=== PATIENT | male | born 1960 | race Caucasian/White ===

== ENCOUNTER → 2020-01-14 08:50 | Outpatient (CLI) | payer OTHER, SELFPAY ==
[2020-01-15 09:29] LABS: COVID19 Sendout Not Detected (Not Detect)
== END ==
PROVIDERS: Family Provider Family Medicine; PCP Family Medicine; Visit Provider Physician Assistant
DX: Z03.818 Encounter for observation for suspected exposure to other biological agents ruled out (principal)
CPT/HCPCS: 87635

== ENCOUNTER → 2020-02-11 14:20 | Outpatient (CLI) | payer OTHER, SELFPAY ==
--- NOTE | 2020-02-11 15:19 | DIET.PN ---
Nutrition Initial Assessment:? ASSESS:???Mr. Laird is a 59 yom referred for pre-diabetes. He reports long standing history (25yrs) of hypoglycemia managed by small, frequent meals. He claims he eats the same thing just about every day other than dinner. He does not exercise but is very active at work. ? LABS: Per pt report:? A1c: 6.4 ? MEDS:?? n/a ? DIET: Per 24-hour recall:? B: cup warm milk, special k w/ milk Sn: crackers, cookies, wheat thins L: ww deli sandwich, applesauce Sn: crackers, cookies, wheat thins D: pro, veg, starch Sn: ice cream, small cup m&m?s ? Weight: 125lb Ht:? 66in BMI: 20.17 ? Exercise:? work NUTRITION DX 1. Altered Nutrition related labs related to impaired glucose metabolism, lack of previous exposure to accurate nutrition information as evidenced by pt report, dx of pre-diabetes, previous diet high in refined carbohydrates, lack of physical activity.? INTERVENTION(s): 1. Discussed pathophysiology of diabetes/hyperglycemia and impact of nutrition/diet on blood sugar control.? 2. Discussed the effect of carbohydrates/protein/fat on blood sugar control.? Stressed importance of consistent carbohydrate intake at each meal and provided instructions for recommended servings/portions of carbohydrates/protein per meal. Provided pt with educational material. 3. Reviewed carbohydrate counting and measuring carbohydrate content via serving sizes and reading nutrition labels.? Provided handouts.?? 4. Discussed the difference between simple versus complex carbohydrates and the effect of fiber on blood sugar control.? Discussed various methods to increase fiber content in diet. 5. Stressed importance of meal timing and not going >4-5 hours between meals. Encouraged adding protein to snacks to support glucose control and prevent hunger. Discussed various snack options. 6. Discussed importance of food preparation to encourage healthy eating, portion control, and prevent hunger/over snacking. MONITOR/EVALUATE: Anticipate excellent compliance.? Pt will call to schedule follow up following new labs.
== END ==
PROVIDERS: Family Provider Family Medicine; PCP Family Medicine; Referring Provider Student in an Organized Health Care Education/Training Program; Visit Provider Student in an Organized Health Care Education/Training Program
DX: R73.03 Prediabetes (principal); E16.2 Hypoglycemia, unspecified; Z71.3 Dietary counseling and surveillance
CPT/HCPCS: 97802

== ENCOUNTER → 2020-08-07 15:23 | Outpatient (CLI) | payer OTHER, SELFPAY ==
[2020-08-07] MEDS: COVID-19 VACC #1, MRNA(MOD) 100 MCG/0.5 ML VIAL IM (15:39)
== END ==
PROVIDERS: PCP Family Medicine; Visit Provider Internal Medicine
DX: Z23 Encounter for immunization (principal)
CPT/HCPCS: 0011A; 91301

== ENCOUNTER → 2020-09-04 15:03 | Outpatient (CLI) | payer OTHER, SELFPAY ==
[2020-09-04] MEDS: COVID-19 VACC #2, MRNA(MOD) 100 MCG/0.5 ML VIAL IM (15:23)
== END ==
PROVIDERS: PCP Family Medicine; Visit Provider Internal Medicine
DX: Z23 Encounter for immunization (principal)
CPT/HCPCS: 0012A; 91301

== ENCOUNTER → 2021-09-20 07:06 | Outpatient (CLI) | payer OTHER, SELFPAY ==
[2021-09-20 08:41] LABS: Add Manual Diff / Slide Review NO; Basophils Absolute Auto 100 /uL (0-100); Basophils Percent Auto 0.6 % (0-2); Eosinophils Absolute Auto 300 /uL (0-450); Eosinophils Percent Auto 3.1 % (2-4); Hematocrit 42.4 % (41-53); Hemoglobin 14.1 g/dL (13.5-17.5); Lymphocytes Absolute Auto 2200 /uL (1100-4500); Mean Corpuscular HGB Conc 33.2 % (30-36); Mean Corpuscular Hemoglobin 27.6 PG (26-34); Mean Corpuscular Volume 83.3 fL (80-100); Monocytes Absolute Auto 700 /uL (0-900); Monocytes Percent Auto 8.2 % (3-14); Neutrophils Absolute Auto 5200 /uL (1500-7000); Neutrophils Percent Auto 62.1 % (50-75); Platelet Count 363 X10^3/uL (150-400); Red Blood Cell Count 5.09 X10^6/uL (4.5-5.9); Red Cell Distribution Width 13.9 % (11.6-14.8); White Blood Cell Count 8.4 X10^3/uL (4.5-11.0)
[2021-09-20 08:55] LABS: Alanine Aminotransferase 23 IU/L (<50); Albumin 4.3 g/dL (3.5-5.0); Albumin Globulin Ratio 1.5 (1.0-2.8); Alkaline Phosphatase 71 U/L (38-126); Aspartate Aminotransferase 30 IU/L (17-59); BUN Creatinine Ratio 17.5 (6-22); Bilirubin Total 0.3 mg/dL (0.2-1.3); Blood Urea Nitrogen 14 mg/dL (9-20); Calcium 9.1 mg/dL (8.4-10.2); Carbon Dioxide 30 mmol/L (22-32); Chloride 103 mmol/L (98-107); Cholesterol 184 mg/dL (140-199); Estimated Glomerular Filt Rate > 60 mL/min (>60); Globulin 2.9 g/dL (1.7-4.1); Glucose 117 mg/dL (80-110); HDL Cholesterol 42 mg/dL (40-60); HEMOLYSIS < 15 (0-50); LDL Cholesterol Calculated 127 mg/dL (<100); Potassium 4.6 mmol/L (3.4-5.1); Sodium 139 mmol/L (137-145); Total Protein 7.2 g/dL (6.3-8.2); Triglycerides 73 mg/dL (35-150)
[2021-09-20 09:23] LABS: Prostate Specific Antigen Scrn 1.55 ng/mL (0.1-4.0)
[2021-09-20 09:24] LABS: TSH w/ Reflex to FT4 1.86 uIU/mL (0.47-4.68)
[2021-09-20 16:51] LABS: Hep C Virus Ab w/Reflex Quant NEGATIVE s/c (NEGATIVE)
== END ==
PROVIDERS: PCP Family Medicine; Referring Provider Family Medicine; Visit Provider Family Medicine
DX: G89.29 Other chronic pain (principal); K58.9 Irritable bowel syndrome, unspecified; M54.50 Low back pain, unspecified; Z00.00 Encounter for general adult medical examination without abnormal findings; Z12.5 Encounter for screening for malignant neoplasm of prostate; J30.9 Allergic rhinitis, unspecified
CPT/HCPCS: 36415; 80053; 80061; 84443; 85025; 86803; G0103

== ENCOUNTER → 2021-10-04 09:53 | Outpatient (CLI) | payer OTHER, SELFPAY ==
--- NOTE | 2021-10-04 09:54 | DI.CT.S_ITS ---
PROCEDURE: CT CHEST WO CON INDICATIONS: Nicotine dependence, cigarettes, uncomplicated TECHNIQUE: Noncontrast 5 mm thick sections acquired from the pulmonary apices to the posterior costophrenic angles. 1 mm lung window, 5 mm thick coronal and sagittal and 7 mm axial MIP reformats were then acquired. For radiation dose reduction, the following was used: automated exposure control, adjustment of mA and/or kV according to patient size. COMPARISON: None. FINDINGS: Image quality: Excellent. Lungs and pleura: Severe centrilobular emphysema. There are 2 separate pulmonary nodules in the left upper lobe in close proximity to each other on image 124/3, measuring 5 mm and 4 mm respectively. There is a 3 mm nodule in the left upper lobe on image 155/3. There is a 3 mm pleural based nodule in the left lower lobe on image 175/3. There is a 2 mm pulmonary nodule in the subpleural right lower lobe on image 212/3. There is a 2 mm right upper lobe pulmonary nodule image 105/3. No acute air space opacities. No pleural effusions or pneumothorax. Central and peripheral airways are patent and normal in caliber. Mediastinum: Heart size is normal. No pericardial effusion. No mediastinal adenopathy by size criteria. Thoracic aorta and central pulmonary arteries are normal in size. Esophagus is normal in caliber. No hiatal hernia. Bones and chest wall: No suspicious bony lesions. No vertebral body compression fractures. No axillary or supraclavicular adenopathy by size criteria. Thyroid gland is unremarkable as visualized . Abdomen: Visualized upper abdominal solid organs and bowel loops appear normal in the absence of contrast. IMPRESSION: 1. Severe centrilobular emphysema. 2. There are multiple pulmonary nodules, the largest of which measures 5 mm. In this particular case, would recommend follow-up CT in 6 months. IM basing this recommendation based on recommendations utilized in initial lung screen CT evaluations. Dictated by: Florencio Suárez M.D. on 10/04/2021 at 18:01 Approved by: Florencio Suárez M.D. on 10/04/2021 at 18:06
== END ==
PROVIDERS: PCP Family Medicine; Referring Provider Family Medicine; Visit Provider Family Medicine
DX: J43.2 Centrilobular emphysema (principal); R91.8 Other nonspecific abnormal finding of lung field; F17.210 Nicotine dependence, cigarettes, uncomplicated
CPT/HCPCS: 71250

== ENCOUNTER 2022-06-24 18:04 | Emergency (ER) | payer OTHER, SELFPAY ==
[2022-06-24 18:15] VITALS: BP 120/79; PULSE 89; RESP 18; TEMP 36.6; O2SAT 98; BMI 20.1
--- NOTE | 2022-06-24 18:21 | ED_ITS ---
HPI - Abdominal Pain General Chief Complaint: Abdominal Pain Stated Complaint: ABD pain Time Seen by Provider: 06/24/22 18:10 Source: patient Mode of arrival: Ambulatory History of Present Illness HPI narrative: 62-year-old male smoker without any chronic medical history presents with a chief complaint of gradually worsening abdominal pain over the course of the day. He states he went to bed in his normal state of health and over the day he is had increasing pain that is largely in his right lower quadrant. It is worse when he moves and improves with rest. He is nauseated but denies any vomiting. He has a poor appetite. He last ate at about 4:00 p.m.. He denies any dysuria, frequency or urgency. He denies any change in bowel habits such as constipation or diarrhea. He is otherwise well and denies dizziness or lightheadedness. He has no chest pain or shortness of breath. Related Data Home Medications Medication Instructions Recorded Confirmed ascorbate calcium (vitamin C) 500 500 mg PO DAILY 05/20/20 10/26/21 mg tablet multivitamin 1 tab PO DAILY 05/20/20 10/26/21 omeprazole 20 mg capsule,delayed 20 mg PO DAILY 05/20/20 06/24/22 release Previous Rx's Medication Instructions Recorded hyoscyamine sulfate 0.125 mg 0.25 mg PO QID PRN dyspepsia #90 08/12/21 disintegrating tablet tabs azelastine 137 mcg (0.1 %) nasal 1 spray intranasal DAILY #30 mL 09/09/21 spray aerosol chlordiazepoxide-clidinium 5 1 cap PO QAC PRN abdominal pain 09/09/21 mg-2.5 mg capsule #30 caps albuterol sulfate 90 mcg/actuation 2 puff inhalation QID PRN 10/26/21 aerosol inhaler shortness of breath or wheezing #8.5 grams Allergies Allergy/AdvReac Type Severity Reaction Status Date / Time erythromycin base AdvReac Intermediate STOMACH Verified 06/24/22 18:19 [From ERYTHROCIN] CRAMPS Review of Systems Review of Systems Narrative: GENERAL: Denies chills, fatigue, malaise, fever, sweats. HEENT: Denies sinus pain, ear pain, sore throat, difficulty swallowing, dizziness. RESPIRATORY: Denies dyspnea, cough, wheezing, hemoptysis, sputum. CARDIOVASCULAR: Denies chest pain, palpitations, orthopnea, edema, GASTROINTESTINAL: See HPI : Denies dysuria, frequency, incontinence, hematuria, urinary retention. MUSCULOSKELETAL: denies weakness, joint pain, or bony pain SKIN: Denies rash, skin lesions, or other NEUROLOGIC: Denies weakness, headache, numbness, change in speech, confusion, seizures, incoordination. PSYCHIATRIC: No concerning psychosocial issues. 12 point review of systems is negative except for those stated above Patient History Medical History Allergic rhinitis Chicken pox (~1967) Chronic back pain (~1991) Emphysema lung Headache (~1975) Hemorrhoid (~1989) Hemorrhoid prolapse IBS (irritable bowel syndrome) (~2015) Pulmonary nodules Surgical History Anesthesia History of colonoscopy Family History Father Diabetes mellitus Cancer Mother Cancer Mental health problem Sister Stroke Mental health problem Sister Mental health problem Social History marital status: household members: spouse occupational status: employed Smoking Status: Current every day smoker alcohol intake: never substance use type: does not use Smoking Status: Current every day smoker tobacco type: cigarettes alcohol intake frequency: other Substance Use Type: does not use Exam Narrative Exam Narrative: GENERAL: [62] year old patient appears stated age. Well-developed patient, in mild distress. HEAD: Atraumatic. Normocephalic. EYES: Pupils equal round and reactive. Extraocular motions intact. No scleral icterus. No injection or drainage. ENT: Nose without bleeding, purulent drainage. Throat without erythema, tonsillar hypertrophy or exudate. Airway patent. NECK: Trachea midline. Non tender CARDIOVASCULAR: Regular rate and rhythm without murmurs, gallops, or rubs. RESPIRATORY: Clear to auscultation. Breath sounds equal bilaterally. No wheezes, rales, or rhonchi. GASTROINTESTINAL: Abdomen soft, tender in the right lower quadrant with local ized guarding, nondistended. No heel tap or obturator EXTREMITIES: No edema or joint tenderness. BACK: Nontender without deformity or crepitance. No flank tenderness. NEURO: AOx3. SKIN: No rash or erythema of visible areas Initial Vital Signs Initial Vital Signs: Vital Signs Temperature 98 F 06/24/22 18:15 Pulse Rate 89 06/24/22 18:15 Respiratory Rate 18 06/24/22 18:15 Blood Pressure 120/79 06/24/22 18:15 Pulse Oximetry 98 06/24/22 18:15 Oxygen Delivery Method Room Air 06/24/22 18:15 Course Orders Ordered: ED Orders 06/24/22 18:26 Complete Blood Count AUTO DIFF Stat Comprehensive Metabolic Panel Stat Lipase Stat 06/24/22 18:55 Urine Microscopic Stat 06/24/22 20:16 CT abdomen pelvis w con Stat 06/24/22 20:28 EKG-12 Lead Stat 06/24/22 21:37 COVID19 -Nasal RAPID Stat Discontinued Medications Sodium Chloride (Normal Saline 0.9%) 1,000 mls @ 1,000 mls/hr IV BOLUS ONE Stop: 06/24/22 21:16 Last Infusion: 06/24/22 21:42 Dose: 0 mls/hr Documented By: Admin: 06/24/22 20:44 Dose: 1,000 mls/hr Documented By: ABUNDIO Piperacillin Sod/Tazobactam (Sod 4.5 gm/ Sodium Chloride) 100 mls @ 200 mls/hr IV NOW ONE Stop: 06/24/22 21:25 Last Infusion: 06/24/22 22:18 Dose: 0 mls/hr Documented By: Admin: 06/24/22 21:46 Dose: 200 mls/hr Documented By: ABUNDIO Vital Signs Vital signs: Vital Signs - 8 hr 06/24/22 18:15 Temperature 98 F Pulse Rate 89 Respiratory Rate 18 Blood Pressure 120/79 Pulse Oximetry 98 Oxygen Delivery Method Room Air MDM - Abdominal Pain Lab Data 06/24/22 18:26 06/24/22 18:26 Labs: Lab Results 06/24/22 06/24/22 06/24/22 Range/Units 18:26 18:26 21:37 WBC 18.5 H (4.5-11.0) X10^3/uL RBC 5.26 (4.5-5.9) X10^6/uL Hgb 14.5 (13.5-17.5) g/dL Hct 43.4 (41-53) % MCV 82.6 (80-100) fL MCH 27.6 (26-34) PG MCHC 33.4 (30-36) % RDW 13.8 (11.6-14.8) % Plt Count 339 (150-400) X10^3/uL Neut % (Auto) Not Reportable Lymph % (Auto) Not Reportable Daniels % (Auto) Not Reportable Eos % (Auto) Not Reportable Baso % (Auto) Not Reportable Lymph # (Auto) Not Reportable Daniels # (Auto) Not Reportable Baso # (Auto) Not Reportable Total Counted 100 Seg Neutrophils % 83.0 H (38-70) % Band Neutrophils % 3.0 (3-7) % Lymphocytes % (Manual) 7.0 L (25-45) % Monocytes % (Manual) 6.0 (2-11) % Eosinophils % (Manual) 1.0 L (2-4) % Neutrophils # (Manual) 37666 H (2458-0503) /uL RBC Morphology Normal morphology Sodium 138 (137-145) mmol/L Potassium 3.7 (3.4-5.1) mmol/L Chloride 102 (98-107) mmol/L Carbon Dioxide 28 (22-32) mmol/L BUN 14 (9-20) mg/dL Creatinine 0.66 (0.66-1.25) mg/dL Estimated GFR > 60 (>60) mL/min BUN/Creatinine Ratio 21.2 (6-22) Glucose 156 H (80-110) mg/dL Calcium 9.3 (8.4-10.2) mg/dL Total Bilirubin 0.6 (0.2-1.3) mg/dL AST 27 (17-59) IU/L ALT 25 (<50) IU/L Alkaline Phosphatase 74 (38-126) U/L Total Protein 7.8 (6.3-8.2) g/dL Albumin 4.6 (3.5-5.0) g/dL Globulin 3.2 (1.7-4.1) g/dL Albumin/Globulin Ratio 1.4 (1.0-2.8) Lipase 76 (23-300) U/L SARS-CoV-2 (PCR) Negative (Negative) Point of care testing: Urine Dip Bedside Urine Glucose 250 mg/dl Bedside Urine Bilirubin - Negative Bedside Urine Ketone +/- 5 Urine Specific [place] 1.015 Bedside Urine Occult Blood - Negative Bedside Urine pH 6.0 Bedside Urine Protein - Negative Bedside Urine Urobilinogen - Negative Bedside Urine Nitrite - Negative Bedside Urine Leukocytes - Negative Esterase Imaging Data CT scan - abdomen/pelvis: Radiologist's Impression: [address] [address] [address] Scan Report Signed Patient: Denzel Laird MR#: [id number] : 1960 Acct:[id number] Age/Sex: 62 / M Date of Service: 06/24/22 Loc: ED Accession Number: [id number] ?? Procedure: CT abdomen pelvis w con Ordering Provider: Lalito Melendez D.O. PROCEDURE:? CT ABDOMEN PELVIS W CON ? INDICATIONS:? abd pain ? TECHNIQUE:? After the administration of IV contrast, axial sections were acquired from the lung bases to the pubic symphysis.? Coronal and sagittal reformats were performed.? For radiation dose reduction, the following was used:? automated exposure control, adjustment of mA and/or kV according to patient size. ? COMPARISON:? None. ? FINDINGS:? Image quality:? Excellent.? ? Lung bases:? There is scarring in the lung bases.? Moderate to severe centrilobular emphysematous changes are also noted.? ? Heart:? Heart is normal in size. ? ? ABDOMEN: Liver:? No mass lesion. Gallbladder:? Within normal limits without calcified gallstones.? ? Biliary ducts:? No biliary ductal dilatation.? ? Pancreas:? Unremarkable.? ? Spleen:? Normal in size.? ? Adrenal Glands:? No adrenal nodules.? ? Kidneys and Ureters:? No hydronephrosis.? ? ? Bowel and peritoneum:? Stomach, small bowel loops, and colon are normal in caliber and wall thickness.? There is abnormal distention of the appendix measuring up to 1.2 cm in diameter with wall thickening and enhancement as well as periappendiceal fat stranding and fluid.? There is an indistinct region at the tip of the appendix suspicious for perforation.? No appendicoliths.? There is a small amount of free fluid in the adjacent right paracolic gutter.? No loculated abscess or free air. ? Ventral Wall: ? No hernia.? Abdominal Nodes:? No retroperitoneal or mesenteric adenopathy by size criteria.? Vessels:? Aorta and inferior vena cava are normal in size.? ? PELVIS: Pelvic Organs:? Unremarkable.? ? Bladder:? Unremarkable.? ? Pelvic Nodes: No enlarged lymph nodes.? Miscellaneous: No inguinal hernias are seen. ? ? ? Bones:? Visualized osseous structures demonstrate no suspicious focal lesions. ? IMPRESSION:? ? 1. Acute appendicitis with suspected perforation at the appendiceal tip.? Small amount of adjacent free fluid demonstrated in the right paracolic gutter without free air or abscess collection. ? Findings discussed with Dr. Melendez on 06/24/2022 at 9:24 p.m..? ? ? Dictated by: Augustin Subramanian M.D. on 06/24/2022 at 21:23 ? ? Approved by: Augustin Subramanian M.D. on 06/24/2022 at 21:28 ? MDM Narrative Medical decision making narrative: CC: 62-year-old male smoker with right lower quadrant pain Complicating co-morbidities: Age, smoker Data collected from: Patient Medical records reviewed: Prior notes reviewed in our EMR Differential considered, but not limited to: Appendicitis, bowel obstruction versus other Exam documented above, pertinent findings include: Right lower quadrant tenderness with localized peritonitis, voluntary guarding, no rebound Lab Test results independently reviewed as above. Pertinent findings: Leukocytosis with relative left shift Independently reviewed EKG as above Imaging studies independently reviewed: CT with appendicitis and free fluid, suggestion of possible perforation of appendiceal tip, no abscess Consultations: Discussed with radiology, Dr. Rossi ([facility] happy to accept Treatments: saline, Zosyn Discussion: 62-year-old male with history and physical exam rather classic and convincing for appendicitis. No signs of sepsis, imaging confirms appendicitis with probable small contained per. Patient requires hospitalization for surgical intervention, we are unable to keep patient here at this time due to unscheduled OR shut down Critical Care Time Critical Care Time Critical Care Time: Yes Total Critical Care Time: 30 Attestation: The high probability of a clinically significant, sudden or life threatening deterioration of the [GI] system(s) required my full and direct attention, intervention and personal management. The aggregate critical care time was [30] minutes. This time is in addition to time spent performing reported procedures b ut includes the following: [x] Data Review and interpretation [x] Patient assessment and monitoring of vital signs [x] Documentation [x] Medication orders and management Discharge Plan Departure Patient Disposition: [facility] Clinical Impression: Acute appendicitis with localized peritonitis Prescriptions: No Action hyoscyamine sulfate 0.125 mg tablet,disintegrating 0.25 mg PO QID PRN (Reason: dyspepsia) Qty: 90 3RF azelastine 137 mcg (0.1 %) aerosol,spray 1 spray intranasal DAILY Qty: 30 4RF Rx Instructions: administer into each nostril chlordiazepoxide-clidinium 5-2.5 mg capsule 1 cap PO QAC PRN (Reason: abdominal pain) Qty: 30 0RF albuterol sulfate 90 mcg/actuation HFA aerosol inhaler 2 puff inhalation QID PRN (Reason: shortness of breath or wheezing) Qty: 8.5 2RF multivitamin Tablet 1 tab PO DAILY ascorbate calcium (vitamin C) 500 mg tablet 500 mg PO DAILY omeprazole 20 mg capsule,delayed release(DR/EC) 20 mg PO DAILY Referrals: Gavin Elmore MD [Primary Care Provider] -
[2022-06-24 18:36] LABS: Hematocrit 43.4 % (41-53); Hemoglobin 14.5 g/dL (13.5-17.5); Mean Corpuscular HGB Conc 33.4 % (30-36); Mean Corpuscular Hemoglobin 27.6 PG (26-34); Mean Corpuscular Volume 82.6 fL (80-100); Platelet Count 339 X10^3/uL (150-400); Red Blood Cell Count 5.26 X10^6/uL (4.5-5.9); Red Cell Distribution Width 13.8 % (11.6-14.8); White Blood Cell Count 18.5 X10^3/uL (4.5-11.0)
[2022-06-24 18:41] LABS: Add Manual Diff / Slide Review YES
[2022-06-24 18:51] LABS: Alanine Aminotransferase 25 IU/L (<50); Albumin 4.6 g/dL (3.5-5.0); Albumin Globulin Ratio 1.4 (1.0-2.8); Alkaline Phosphatase 74 U/L (38-126); Aspartate Aminotransferase 27 IU/L (17-59); BUN Creatinine Ratio 21.2 (6-22); Bilirubin Total 0.6 mg/dL (0.2-1.3); Blood Urea Nitrogen 14 mg/dL (9-20); Calcium 9.3 mg/dL (8.4-10.2); Carbon Dioxide 28 mmol/L (22-32); Chloride 102 mmol/L (98-107); Estimated Glomerular Filt Rate > 60 mL/min (>60); Globulin 3.2 g/dL (1.7-4.1); Glucose 156 mg/dL (80-110); HEMOLYSIS < 15 (0-50); Lipase 76 U/L (23-300); Potassium 3.7 mmol/L (3.4-5.1); Sodium 138 mmol/L (137-145); Total Protein 7.8 g/dL (6.3-8.2)
[2022-06-24 19:25] LABS: Neutrophils Absolute Manual 15910 /uL (3000-5900); RBC Morphology Normal Morphology; Total Cells Counted 100
--- NOTE | 2022-06-24 20:16 | DI.CT.S_ITS ---
PROCEDURE: CT ABDOMEN PELVIS W CON INDICATIONS: abd pain TECHNIQUE: After the administration of IV contrast, axial sections were acquired from the lung bases to the pubic symphysis. Coronal and sagittal reformats were performed. For radiation dose reduction, the following was used: automated exposure control, adjustment of mA and/or kV according to patient size. COMPARISON: None. FINDINGS: Image quality: Excellent. Lung bases: There is scarring in the lung bases. Moderate to severe centrilobular emphysematous changes are also noted. Heart: Heart is normal in size. ABDOMEN: Liver: No mass lesion. Gallbladder: Within normal limits without calcified gallstones. Biliary ducts: No biliary ductal dilatation. Pancreas: Unremarkable. Spleen: Normal in size. Adrenal Glands: No adrenal nodules. Kidneys and Ureters: No hydronephrosis. Bowel and peritoneum: Stomach, small bowel loops, and colon are normal in caliber and wall thickness. There is abnormal distention of the appendix measuring up to 1.2 cm in diameter with wall thickening and enhancement as well as periappendiceal fat stranding and fluid. There is an indistinct region at the tip of the appendix suspicious for perforation. No appendicoliths. There is a small amount of free fluid in the adjacent right paracolic gutter. No loculated abscess or free air. Ventral Wall: No hernia. Abdominal Nodes: No retroperitoneal or mesenteric adenopathy by size criteria. Vessels: Aorta and inferior vena cava are normal in size. PELVIS: Pelvic Organs: Unremarkable. Bladder: Unremarkable. Pelvic Nodes: No enlarged lymph nodes. Miscellaneous: No inguinal hernias are seen. Bones: Visualized osseous structures demonstrate no suspicious focal lesions. IMPRESSION: 1. Acute appendicitis with suspected perforation at the appendiceal tip. Small amount of adjacent free fluid demonstrated in the right paracolic gutter without free air or abscess collection. Findings discussed with Dr. Melendez on 06/24/2022 at 9:24 p.m.. Dictated by: Augustin Subramanian M.D. on 06/24/2022 at 21:23 Approved by: Augustin Subramanian M.D. on 06/24/2022 at 21:28
[2022-06-24] MEDS: SODIUM CHLORIDE 0.9% 1,000 ML 1000 ML IV (20:44)
[2022-06-24] MEDS: PIPERACILLIN/TAZO 4.5 GM in SODIUM CHLORIDE 0.9% 100 ML IV (21:46)
[2022-06-24 22:00] LABS: COVID19 -Nasal RAPID Negative (Negative)
[2022-06-25 03:58] VITALS: BP 105/64; PULSE 76; RESP 14; TEMP 37.1; O2SAT 97
== END 2022-06-25 04:00 | disposition short-term general hospital (02) ==
PROVIDERS: Emergency Provider Emergency Medicine; PCP Family Medicine
DX: K35.30 Acute appendicitis with localized peritonitis, without perforation or gangrene (principal); Z20.822 Contact with and (suspected) exposure to COVID-19
CPT/HCPCS: 36415; 74177; 80053; 81003; 83690; 85007; 85025; 87635; 93005; 93010; 96361; 96365; 99284; C9803; J2543; Q9967

== ENCOUNTER → 2022-10-28 07:05 | Outpatient (CLI) | payer OTHER, SELFPAY ==
[2022-10-28 08:11] LABS: Add Manual Diff / Slide Review NO; Basophils Absolute Auto 100 /uL (0-100); Basophils Percent Auto 1.3 % (0-2); Eosinophils Absolute Auto 300 /uL (0-450); Eosinophils Percent Auto 4.2 % (2-4); Hematocrit 42.9 % (41-53); Hemoglobin 14.5 g/dL (13.5-17.5); Lymphocytes Absolute Auto 2100 /uL (1100-4500); Lymphocytes Percent Auto 26.9 % (25-40); Mean Corpuscular HGB Conc 33.9 % (30-36); Mean Corpuscular Hemoglobin 28.2 PG (26-34); Monocytes Absolute Auto 700 /uL (0-900); Monocytes Percent Auto 8.3 % (3-14); Neutrophils Absolute Auto 4700 /uL (1500-7000); Neutrophils Percent Auto 59.3 % (50-75); Platelet Count 336 X10^3/uL (150-400); Red Blood Cell Count 5.16 X10^6/uL (4.5-5.9); Red Cell Distribution Width 13.6 % (11.6-14.8); White Blood Cell Count 7.9 X10^3/uL (4.5-11.0)
[2022-10-28 08:33] LABS: Alanine Aminotransferase 23 IU/L (<50); Albumin 4.2 g/dL (3.5-5.0); Albumin Globulin Ratio 1.4 (1.0-2.8); Alkaline Phosphatase 69 U/L (38-126); Aspartate Aminotransferase 27 IU/L (17-59); BUN Creatinine Ratio 21.5 (6-22); Bilirubin Total 0.5 mg/dL (0.2-1.3); Blood Urea Nitrogen 17 mg/dL (9-20); Calcium 9.1 mg/dL (8.4-10.2); Carbon Dioxide 30 mmol/L (22-32); Chloride 102 mmol/L (98-107); Cholesterol 182 mg/dL (140-199); Estimated Glomerular Filt Rate > 60 mL/min (>60); Globulin 2.9 g/dL (1.7-4.1); Glucose 112 mg/dL (80-110); HDL Cholesterol 46 mg/dL (40-60); HEMOLYSIS < 15 (0-50); LDL Cholesterol Calculated 121 mg/dL (<100); Potassium 4.6 mmol/L (3.4-5.1); Sodium 137 mmol/L (137-145); Total Protein 7.1 g/dL (6.3-8.2); Triglycerides 74 mg/dL (35-150)
[2022-10-28 09:02] LABS: Prostate Specific Antigen Scrn 1.81 ng/mL (0.1-4.0)
[2022-10-28 09:14] LABS: TSH w/ Reflex to FT4 1.49 uIU/mL (0.47-4.68)
[2022-10-29 09:30] LABS: Labcorp Hemoglobin (Hb) A1c 6.1 % (4.8-5.6)
== END ==
PROVIDERS: PCP Family Medicine; Referring Provider Family Medicine; Visit Provider Family Medicine
DX: J43.9 Emphysema, unspecified (principal); R91.8 Other nonspecific abnormal finding of lung field; R73.9 Hyperglycemia, unspecified; E78.5 Hyperlipidemia, unspecified; Z00.00 Encounter for general adult medical examination without abnormal findings
CPT/HCPCS: 36415; 80053; 80061; 83036; 84443; 85025; G0103

== ENCOUNTER → 2022-11-01 07:35 | Outpatient (CLI) | payer OTHER, SELFPAY ==
--- NOTE | 2022-11-01 16:54 | DI.CT.S_ITS ---
PROCEDURE: CT CHEST WO CON INDICATIONS: pulmonary nodules TECHNIQUE: Noncontrast 2.0-2.5 mm thick sections acquired from the pulmonary apices to the posterior costophrenic angles. 7 mm thick axial MIP and 5 mm coronal and sagittal reformats were then acquired. A low radiation dose technique was utilized. COMPARISON: [facility], CT, CT CHEST WO CON, 10/04/2021, 10:21. FINDINGS: Image quality: Diagnostic, given the low radiation dose technique. Lungs and pleura: Redemonstration of severe upper lobe predominant centrilobular pulmonary emphysematous changes. 2 immediately adjacent pulmonary nodules noted in the left upper lobe (image 127/series 3) are not significantly changed. The measure approximately 5 mm and 6 mm in size, respectively. Stable 3 mm left upper lobe nodule seen on image 160/series 3. Stable 3 mm subpleural left lower lobe pulmonary nodule seen on image 201/series 3. Stable 2-3 mm subpleural nodule in the posterior right lower lobe (image 203/series 3). No new suspicious pulmonary nodules identified. No acute airspace opacities. No pneumothorax. No pleural effusion. No septal thickening or nodularity. Visualized airways appear patent. Mediastinum: Heart size is normal. No pericardial effusion. No mediastinal adenopathy by size criteria. Thoracic aorta and central pulmonary arteries are normal in size. Esophagus is normal in caliber. No hiatal hernia. Bones and chest wall: No suspicious bony lesions. No vertebral body compression fractures. No axillary or supraclavicular adenopathy by size criteria. Thyroid gland is unremarkable . Abdomen: Visualized upper abdomen solid organs and bowel loops appear normal in the absence of contrast. IMPRESSION: 1. CT chest without acute cardiopulmonary abnormalities. Redemonstration of severe upper lobe predominant centrilobular pulmonary emphysema. 2. Multiple stable bilateral pulmonary nodules measuring up to 6 mm in maximum dimension. No new suspicious pulmonary nodules identified. Recommend follow-up chest CT in 12 months to document continued stability. Fleischner Society criteria for SOLID lung nodule followup. Nodule size (mm)Low-risk patientHigh-risk patient<6 (single or multiple)No routine followup.Optional CT at 12 months. 6-8 (single or multiple)CT at 6-12 months, then optional CT at 18-24 mo.CT at 6-12 months, then CT at 18-24 months. >8 (single)CT at 3 months, PET-CT, or biopsy. Same as for low-risk pts. >8 (multiple)CT at 3-6 months, then optional CT at 18-24 mo.CT at 3-6 months, then CT at 18-24 months. Fleischner Society criteria for SUB-SOLID lung nodule followup. Solitary pure ground-glass nodules<6 mm (ground glass or part solid)No followup needed. 6 mm or larger (ground glass)CT at 6-12 months to confirm persistence, then CT every 2 years until 5 years.6 mm or larger (part solid)CT at 3-6 months to confirm persistence, then annual CT until 5 years if unchanged and solid component remains <6 mm. Multiple sub-solid nodules<6 mmCT at 3-6 months, then CT consider at 2 & 4 years for high risk patients. [address] at 3-6 months. Subsequent management based on most suspicious lesions. Recommendations do not apply to lung cancer screening, patients with immunosuppression, or patients with known primary cancer. Dictated by: Miguel Angel Ash M.D. on 11/02/2022 at 11:40 Approved by: Miguel Angel Ash M.D. on 11/02/2022 at 11:50
[2022-11-02 17:13] LABS: Fecal Immunochemical Test Negative (Negative)
== END ==
PROVIDERS: PCP Family Medicine; Referring Provider Family Medicine; Visit Provider Family Medicine
DX: R91.8 Other nonspecific abnormal finding of lung field (principal); J43.2 Centrilobular emphysema; Z12.11 Encounter for screening for malignant neoplasm of colon
CPT/HCPCS: 71250; 82274

== ENCOUNTER → 2024-04-29 07:07 | Outpatient (CLI) | payer BC, SELFPAY ==
[2024-04-29 08:06] LABS: Add Manual Diff / Slide Review NO; Basophils Absolute Auto 100 /uL (0-100); Basophils Percent Auto 0.8 % (0-2); Eosinophils Absolute Auto 400 /uL (0-450); Eosinophils Percent Auto 4.3 % (2-4); Hematocrit 43.6 % (41-53); Hemoglobin 14.5 g/dL (13.5-17.5); Lymphocytes Absolute Auto 2500 /uL (1100-4500); Lymphocytes Percent Auto 28.1 % (25-40); Mean Corpuscular HGB Conc 33.3 % (30-36); Mean Corpuscular Volume 84.1 fL (80-100); Monocytes Absolute Auto 800 /uL (0-900); Monocytes Percent Auto 8.8 % (3-14); Neutrophils Absolute Auto 5200 /uL (1500-7000); Platelet Count 364 X10^3/uL (150-400); Red Blood Cell Count 5.19 X10^6/uL (4.5-5.9); White Blood Cell Count 8.9 X10^3/uL (4.5-11.0)
[2024-04-29 08:11] LABS: Alanine Aminotransferase 24 IU/L (<50); Albumin 4.4 g/dL (3.5-5.0); Albumin Globulin Ratio 1.9 (1.0-2.8); Alkaline Phosphatase 66 U/L (38-126); Aspartate Aminotransferase 32 IU/L (17-59); BUN Creatinine Ratio 21.8 (6-22); Bilirubin Total 0.5 mg/dL (0.2-1.3); Blood Urea Nitrogen 17 mg/dL (9-20); Calcium 9.4 mg/dL (8.4-10.2); Carbon Dioxide 30 mmol/L (22-32); Chloride 106 mmol/L (98-107); Cholesterol 191 mg/dL (140-199); Estimated Glomerular Filt Rate > 60 mL/min (>60); Globulin 2.3 g/dL (1.7-4.1); Glucose 113 mg/dL (80-110); HDL Cholesterol 52 mg/dL (40-60); HEMOLYSIS < 15 (0-50); LDL Cholesterol Calculated 125 mg/dL (<100); Potassium 4.2 mmol/L (3.4-5.1); Sodium 138 mmol/L (137-145); Total Protein 6.7 g/dL (6.3-8.2); Triglycerides 72 mg/dL (35-150)
[2024-04-29 08:42] LABS: Prostate Specific Antigen Scrn 4.65 ng/mL (0.1-4.0)
== END ==
PROVIDERS: PCP Family Medicine; Referring Provider Family Medicine; Visit Provider Family Medicine
DX: Z12.5 Encounter for screening for malignant neoplasm of prostate (principal); Z00.00 Encounter for general adult medical examination without abnormal findings; J43.9 Emphysema, unspecified; R91.8 Other nonspecific abnormal finding of lung field; G89.29 Other chronic pain; M54.9 Dorsalgia, unspecified; R73.9 Hyperglycemia, unspecified; E78.2 Mixed hyperlipidemia
CPT/HCPCS: 36415; 80053; 80061; 83036; 85025; G0103

== ENCOUNTER → 2024-04-30 08:06 | Outpatient (CLI) | payer OTHER, SELFPAY ==
[2024-05-01 13:10] LABS: Fecal Immunochemical Test Negative (Negative)
== END ==
PROVIDERS: PCP Family Medicine; Referring Provider Family Medicine; Visit Provider Family Medicine
DX: Z12.11 Encounter for screening for malignant neoplasm of colon (principal)
CPT/HCPCS: 82274

== ENCOUNTER → 2024-05-06 09:45 | Outpatient (CLI) | payer OTHER, SELFPAY ==
--- NOTE | 2024-05-06 09:48 | DI.CT.S_ITS ---
PROCEDURE: CT LUNG LOW DOSE SCREENING INDICATIONS: current smoker TECHNIQUE: Noncontrast 2.0-2.5 mm thick sections acquired from the pulmonary apices to the posterior costophrenic angles. 7 mm thick axial MIP, and 5 mm coronal and sagittal reformats were then acquired. For radiation dose reduction, the following was used: automated exposure control, adjustment of mA and/or kV according to patient size. COMPARISON: None. FINDINGS: Image quality: Diagnostic. Lungs and Pleura: Occasional scattered micro nodules in the right upper lobe, the largest measuring 4 mm, 3/99. Clustered smooth solid nodules anterolateral left upper lobe measuring five and 6 mm, 3/146. Few smaller solid lingular nodules, 3/250 and 177. Occasional smaller nodules in the left lower lobe and a few Yenny fissural lymph nodes. Moderate to severe upper lobe predominant emphysematous change. Minor peripheral left mid and lower lung ground-glass opacity associated with destructive centrilobular emphysematous change. No dense consolidations or pleural effusions. No pleural calcification. No significant bronchiectasis or bronchial wall thickening. Lower Neck: No enlarged lymph nodes. Thyroid: Normal CT appearance. Axillae: No enlarged lymph nodes. Chest Wall: No suspicious chest wall mass. Bones: No suspicious bone lesions. Heart: Heart size is normal. No pericardial effusion. Thoracic Vessels: The aorta and pulmonary arteries demonstrate normal size. Mediastinum and Dolores: No enlarged lymph nodes. Esophagus: No wall thickening. No hiatal hernia. Upper Abdomen: Visualized upper abdomen solid organs and bowel loops appear normal. IMPRESSION: Several scattered smooth bilateral solid lung nodules, the largest measuring 6 mm. LUNG-RADS three; six-month follow-up low-dose chest CT recommended to reassess size. Clinically Significant Non-pulmonary Findings: Moderate to severe emphysema.. Dictated by: Abbi Pineda M.D. on 05/06/2024 at 16:03 Approved by: Abbi Pineda M.D. on 05/06/2024 at 16:13
== END ==
PROVIDERS: PCP Family Medicine; Referring Provider Family Medicine; Visit Provider Family Medicine
DX: R91.8 Other nonspecific abnormal finding of lung field (principal); J43.2 Centrilobular emphysema; F17.210 Nicotine dependence, cigarettes, uncomplicated
CPT/HCPCS: 71271